=== PATIENT | female | born 1935 | race Caucasian/White ===

== ENCOUNTER 2020-08-16 21:28 | Inpatient (IN) ==
[2020-08-16] MEDS ORDERED: Isovue-370 500 ML BOTTLE IVP ONE (22:13)
[2020-08-16 22:47] LABS: Basophils % 0.3 %; Eosinophils # 0.1 K/mcL (0.0-0.6); Eosinophils % 1.1 %; Hematocrit 37.4 % (35.3-44.9); Hemoglobin 12.5 g/dL (11.5-15.4); Immature Granulocytes % 0.2 % (0-4); Lymphocytes # 1.8 K/mcL (0.6-4.6); Lymphocytes % 20.4 %; Mean Corpuscular HGB Conc 33.4 g/dL (31.6-35.5); Mean Corpuscular Hemoglobin 30.3 pg (28.0-33.3); Mean Corpuscular Volume 90.6 fL (83.0-100.0); Mean Platelet Volume 9.8 fL (9.4-12.4); Monocytes # 0.9 K/mcL (0.0-1.3); Neutrophils # 6.2 K/mcL (1.6-8.9); Platelet Count 198 K/mcL (140-400); Red Blood Count 4.13 M/mcL (3.82-4.97); Red Cell Distribution Width 13.2 % (11.5-14.5)
[2020-08-16 23:11] LABS: BUN/Creatinine Ratio 27 (6-26); Blood Urea Nitrogen 25 mg/dL (8-23); Calcium 9.3 mg/dL (8.6-10.3); Carbon Dioxide 26 mEq/L (23-29); Chloride 107 mEq/L (98-107); Glucose 134 mg/dL (70-105); Osmolality,Calculated 298 (280-300); Potassium 3.8 mEq/L (3.5-5.1); Sodium 141 mEq/L (136-145); Troponin I < 0.03 ng/mL (< 0.04); eGFR For African Americans > 60 (> 60); eGFR For Non-African Americans 58 (> 60)
[2020-08-17] MEDS ORDERED: *HR* Heparin 5,000 UNIT/ML VIAL IVP ONE (01:23)
[2020-08-17] MEDS ORDERED: *HR* Heparin 5,000 UNIT/ML VIAL IVP PRN ×2 (01:23)
[2020-08-17] MEDS: Heparin 25,000UNIT/250ML 1/2NS 25,000 UNIT/250 ML IV.SOLN IVC SCH (01:53)
[2020-08-17 01:58] LABS: Hematocrit 36.2 % (35.3-44.9); Hemoglobin 12.1 g/dL (11.5-15.4); Mean Corpuscular HGB Conc 33.4 g/dL (31.6-35.5); Mean Corpuscular Volume 89.8 fL (83.0-100.0); Mean Platelet Volume 9.8 fL (9.4-12.4); Platelet Count 192 K/mcL (140-400); Red Blood Count 4.03 M/mcL (3.82-4.97)
[2020-08-17 02:00] LABS: INR 1.1; Prothrombin Time 12.5 Seconds (9.4-12.1)
[2020-08-17 02:02] LABS: Heparin anti-factor XA UFH < 0.04 IU/mL (0.30-0.70)
[2020-08-17] MEDS ORDERED: Naloxone 0.4 MG/ML INJ IVP PRN (02:16)
[2020-08-17] MEDS ORDERED: Ondansetron 4 MG/2 ML VIAL IVP PRN (02:16)
[2020-08-17] MEDS ORDERED: Acetaminophen 325 MG TABLET PO PRN (02:16)
[2020-08-17 09:13] LABS: Alanine Aminotransferase 9 Units/L (7-52); Albumin 3.9 g/dL (3.5-5.7); Albumin/Globulin Ratio 1.4 (1.1-2.2); Alkaline Phosphatase 49 Units/L (34-104); Aspartate Amino Transferase 10 Units/L (13-39); BUN/Creatinine Ratio 30 (6-26); Bilirubin,Total 0.5 mg/dL (0.3-1.0); Blood Urea Nitrogen 20 mg/dL (8-23); Calcium 9.2 mg/dL (8.6-10.3); Carbon Dioxide 24 mEq/L (23-29); Chloride 106 mEq/L (98-107); Globulin 2.8 g/dL (2.4-3.5); Glucose 107 mg/dL (70-105); Magnesium 2.2 mg/dL (1.6-2.6); Osmolality,Calculated 291 (280-300); Phosphorous 3.2 mg/dL (2.7-4.5); Potassium 3.8 mEq/L (3.5-5.1); Sodium 139 mEq/L (136-145); Total Protein 6.7 g/dL (6.4-8.9); eGFR For African Americans > 60 (> 60); eGFR For Non-African Americans > 60 (> 60)
[2020-08-17 09:14] LABS: Troponin I < 0.03 ng/mL (< 0.04)
[2020-08-17 15:48] LABS: Bilirubin,Urine Negative (Negative); Blood,Urine Moderate (Negative); Clarity,Urine Clear (Clear); Color,Urine Light-Yellow (Yellow); Glucose,Urine (UA) Normal (Normal); Ketones,Urine Negative (Negative); Leukocyte Esterase,Urine Negative (Negative); Mucus,Urine Few per lpf (None-Few); Nitrite,Urine Negative (Negative); PH,Urine 6.5 pH Units (5.0-8.0); Protein,Urine Trace mg/dL (Neg-Trace); RBC,Urine 30-50 per hpf (0-3); Specific Gravity,Urine > 1.030 (1.010-1.025); Squamous Epithelial Cell,Urine Few per hpf (None-Few); Urobilinogen,Urine Normal (Normal)
[2020-08-18] MEDS: Heparin 25,000UNIT/250ML 1/2NS 25,000 UNIT/250 ML IV.SOLN IVC SCH (07:50)
[2020-08-18 08:23] LABS: Basophils % 0.6 %; Eosinophils # 0.1 K/mcL (0.0-0.6); Eosinophils % 1.5 %; Hematocrit 39.6 % (35.3-44.9); Hemoglobin 13.2 g/dL (11.5-15.4); Immature Granulocytes % 0.3 % (0-4); Lymphocytes # 1.4 K/mcL (0.6-4.6); Lymphocytes % 20.9 %; Mean Corpuscular HGB Conc 33.3 g/dL (31.6-35.5); Mean Corpuscular Hemoglobin 29.9 pg (28.0-33.3); Mean Corpuscular Volume 89.6 fL (83.0-100.0); Mean Platelet Volume 9.9 fL (9.4-12.4); Monocytes # 0.6 K/mcL (0.0-1.3); Monocytes % 8.9 %; Neutrophils # 4.6 K/mcL (1.6-8.9); Platelet Count 227 K/mcL (140-400); Red Blood Count 4.42 M/mcL (3.82-4.97); Segmented Neutrophils % 67.8 %; White Blood Count 6.8 K/mcL (4.3-11.1)
[2020-08-18 08:43] LABS: BUN/Creatinine Ratio 21 (6-26); Blood Urea Nitrogen 15 mg/dL (8-23); Calcium 9.5 mg/dL (8.6-10.3); Carbon Dioxide 28 mEq/L (23-29); Chloride 104 mEq/L (98-107); Glucose 139 mg/dL (70-105); Osmolality,Calculated 291 (280-300); Sodium 139 mEq/L (136-145); eGFR For African Americans > 60 (> 60); eGFR For Non-African Americans > 60 (> 60)
[2020-08-18] MEDS ORDERED: Isovue-370 500 ML BOTTLE IVP ONE (11:03)
[2020-08-18] MEDS ORDERED: Gadolinium Contrast Agent (WT Based) IV PRN (11:03)
[2020-08-18] MEDS ORDERED: Haloperidol Lactate 5 MG/ML VIAL IM STA (16:12)
[2020-08-18] MEDS ORDERED: Haloperidol Lactate 5 MG/ML VIAL ONE (16:18)
[2020-08-18] MEDS ORDERED: Haloperidol Lactate 5 MG/ML VIAL IM PRN (17:26)
[2020-08-18] MEDS: *HR* Enoxaparin 80 MG/0.8 ML SYRINGE SQ SCH (19:43)
[2020-08-18] MEDS ORDERED: OLANZapine 5 MG TAB.RAPDIS PO SCH (21:00)
[2020-08-19 01:22] LABS: Basophils % 0.6 %; Eosinophils # 0.1 K/mcL (0.0-0.6); Eosinophils % 1.4 %; Hematocrit 37.2 % (35.3-44.9); Hemoglobin 12.2 g/dL (11.5-15.4); Immature Granulocytes % 0.4 % (0-4); Lymphocytes % 27.9 %; Mean Corpuscular HGB Conc 32.8 g/dL (31.6-35.5); Mean Corpuscular Hemoglobin 29.5 pg (28.0-33.3); Mean Corpuscular Volume 89.9 fL (83.0-100.0); Mean Platelet Volume 9.9 fL (9.4-12.4); Monocytes # 0.7 K/mcL (0.0-1.3); Monocytes % 10.4 %; Neutrophils # 4.2 K/mcL (1.6-8.9); Platelet Count 200 K/mcL (140-400); Red Blood Count 4.14 M/mcL (3.82-4.97); Red Cell Distribution Width 13.2 % (11.5-14.5); Segmented Neutrophils % 59.3 %; White Blood Count 7.1 K/mcL (4.3-11.1)
[2020-08-19 01:37] LABS: BUN/Creatinine Ratio 28 (6-26); Blood Urea Nitrogen 19 mg/dL (8-23); Carbon Dioxide 23 mEq/L (23-29); Chloride 106 mEq/L (98-107); Glucose 97 mg/dL (70-105); Osmolality,Calculated 288 (280-300); Potassium 3.9 mEq/L (3.5-5.1); Sodium 138 mEq/L (136-145); eGFR For African Americans > 60 (> 60); eGFR For Non-African Americans > 60 (> 60)
[2020-08-19] MEDS: *HR* Enoxaparin 80 MG/0.8 ML SYRINGE SQ SCH ×2 (05:52→19:22)
[2020-08-19] MEDS: Bisacodyl 10 MG RECTAL SUPPOSITORY RC SCH (15:33)
[2020-08-19] MEDS: Sennosides/Docusate Sodium TABLET PO SCH ×2 (15:33→20:24)
[2020-08-20] MEDS: *HR* Enoxaparin 80 MG/0.8 ML SYRINGE SQ SCH (06:29)
[2020-08-20] MEDS: Sennosides/Docusate Sodium TABLET PO SCH ×2 (08:57→20:26)
[2020-08-20] MEDS: Bisacodyl 10 MG RECTAL SUPPOSITORY RC SCH (08:57)
[2020-08-20] MEDS: *HR* Rivaroxaban 15 MG TABLET PO SCH (17:37)
[2020-08-21 11:36] VITALS: BP 150/79
[2020-08-21] MEDS: *HR* Rivaroxaban 15 MG TABLET PO SCH (12:57)
[2020-08-21] MEDS: Sennosides/Docusate Sodium TABLET PO SCH (12:57)
[2020-08-21] MEDS: Bisacodyl 10 MG RECTAL SUPPOSITORY RC SCH (12:57)
[2020-08-21] MEDS ORDERED: *HR* Rivaroxaban 15 MG TABLET PO SCH (21:00)
== END 2020-08-21 17:55 | disposition home health service (06) | DRG 176 ==
LOC: EMEROOARM 21:28 → CDU 21:28 → SUATTDRO 08-17 02:01 → CDU 08-17 02:48 → 3ANU 08-19 17:32
PROVIDERS: ADMIT Family Medicine; ATTEND Internal Medicine